=== PATIENT | male | born 1985 | race Caucasian/White ===

== ENCOUNTER → 2022-07-09 | Outpatient (CLI) ==
[~2022-07-09] MED LIST: PERC5TAB12 PO
== END ==
LOC: M SOG 11:53
PROVIDERS: ATTEND Orthopaedic Surgery Hand Surgery
DX: S63.256A Unspecified dislocation of right little finger, initial encounter (principal); X58.XXXA Exposure to other specified factors, initial encounter; Y92.9 Unspecified place or not applicable

== ENCOUNTER → 2022-07-23 | Outpatient (CLI) | payer OTHER | LOC: M SOG 13:06 | PROVIDERS: ATTEND Physician Assistant | DX: S63.286A Dislocation of proximal interphalangeal joint of right little finger, initial encounter (principal); Z98.890 Other specified postprocedural states; X58.XXXA Exposure to other specified factors, initial encounter; Y92.9 Unspecified place or not applicable; Y93.9 Activity, unspecified; Y99.9 Unspecified external cause status ==

== ENCOUNTER → 2022-08-17 | Outpatient (CLI) | payer OTHER | LOC: M SOG 11:47 | PROVIDERS: ATTEND Orthopaedic Surgery Hand Surgery | DX: S63.286D Dislocation of proximal interphalangeal joint of right little finger, subsequent encounter (principal) ==

== ENCOUNTER 2022-08-23 20:23 | Emergency (ER) | payer OTHER ==
[~2022-08-23] VITALS: Ht 170.2 cm; Wt 92.9 kg
[2022-08-23] MEDS ORDERED: CEFA500C2 (20:30)
[2022-08-23 22:19] VITALS: BP 118/64; TEMP 98; O2SAT 98
== END 2022-08-23 22:52 | disposition home or self-care (01) ==
LOC: M ED 20:23
DX: T88.9XXA Complication of surgical and medical care, unspecified, initial encounter (principal); M79.644 Pain in right finger(s); Z91.013 Allergy to seafood; Z79.899 Other long term (current) drug therapy

== ENCOUNTER → 2022-08-24 | Outpatient (CLI) | payer OTHER ==
[~2022-08-24] MED LIST changes: +CEFA500C2
== END ==
LOC: M SOG 11:01
PROVIDERS: ATTEND Physician Assistant
DX: S63.286D Dislocation of proximal interphalangeal joint of right little finger, subsequent encounter (principal); Z47.89 Encounter for other orthopedic aftercare

== ENCOUNTER → 2022-09-16 | Outpatient (CLI) | payer OTHER | LOC: M SOG 09:18 | PROVIDERS: ATTEND Orthopaedic Surgery Hand Surgery | DX: M79.644 Pain in right finger(s) (principal) ==